=== PATIENT | female | born 1940 | race Hispanic/Latino ===

== ENCOUNTER 2017-09-13 21:33 | Emergency (ER) | payer MEDICARE ==
[~2017-09-13] VITALS: Ht 152.4 cm; Wt 49.0 kg
[~2017-09-13 21:33] MED LIST: HYDROCHLOROTHIA25 MG PO; LOSARTAN POTAS100 MG PO; METOPROLOL SUCC50 MG PO; SERTRALINE HCL50 MG PO
[2017-09-13] MEDS ORDERED: CLONIDINE HCL 0.1 MG TAB PO ONE (22:00)
[2017-09-13 22:28] LABS: BASOPHILS % 0.5 % (0.0-1.0); EOSINOPHILS # (AUTO) 0.1 (0.0-0.4); HEMATOCRIT 35.1 % (34.2-44.1); HEMOGLOBIN 11.9 g/dL (12.0-16.0); LYMPHOCYTES # (AUTO) 2.1 (1.0-3.2); LYMPHOCYTES % 33.8 % (18.0-39.1); MEAN CORPUSCULAR HGB CONC 33.9 g/dL (31-35); MEAN CORPUSCULAR VOLUME 94.4 fL (81-99); MONOCYTES # (AUTO) 0.5 (0.2-0.8); MONOCYTES % 7.8 % (4.4-11.3); NEUTROPHILS # (AUTO) 3.5 (2.1-6.9); NEUTROPHILS % 55.8 % (38.7-80.0); PLATELET COUNT 214 x10e3/uL (140-360); RED BLOOD COUNT 3.72 x10e6/uL (3.6-5.1); RED CELL DISTRIBUTION WIDTH 13.5 % (11.7-14.4)
--- NOTE | 2017-09-13 22:32 | Diagnostic Imaging Report ---
EXAMINATION: CHEST SINGLE (PORTABLE) INDICATION: Chest discomfort. Pain. COMPARISON: 01/10/2017 FINDINGS: TUBES and LINES: None. LUNGS: Lungs are well inflated. Lungs are clear. There is no evidence of pneumonia or pulmonary edema. PLEURA: No pleural effusion or pneumothorax. HEART AND MEDIASTINUM: Cardiac size is mildly enlarged. BONES AND SOFT TISSUES: No acute osseous lesion. Soft tissues are unremarkable. UPPER ABDOMEN: No free air under the diaphragm. IMPRESSION: No acute thoracic abnormality. Mild enlargement of the cardiac silhouette without decompensation. Signed by: Dr. Ino Rodriguez M.D. on 09/13/2017 10:28 PM
[2017-09-13 22:44] LABS: ALANINE AMINOTRANSFERASE 15 IU/L (0-55); ALBUMIN 4.2 g/dL (3.5-5.0); ALBUMIN/GLOBULIN RATIO 1.2 (0.8-2.0); ALKALINE PHOSPHATASE 78 IU/L (40-150); ANION GAP 16.7 mmol/L (8-16); BLOOD UREA NITROGEN 15 mg/dL (7-26); BUN/CREATININE RATIO 18 (6-25); CALCIUM 8.9 mg/dL (8.4-10.2); CARBON DIOXIDE 21 mmol/L (22-29); CHLORIDE 107 mmol/L (98-107); CREATINE KINASE 139 IU/L (29-168); CREATININE, SERUM 0.83 mg/dL (0.57-1.11); EST GLOMERULAR FILTRATION RATE > 60 ML/MIN (60-); GLUCOSE 114 mg/dL (74-118); POTASSIUM 3.7 mmol/L (3.5-5.1); SODIUM 141 mmol/L (136-145)
== END 2017-09-13 23:48 | disposition home or self-care (01) ==
LOC: ER 21:33
DX: I10 Essential (primary) hypertension (principal); R51 Headache; R07.89 Other chest pain; E78.5 Hyperlipidemia, unspecified
CPT/HCPCS: 36415; 71045; 80053; 82550; 82553; 84484; 85025; 93005; 99283

== ENCOUNTER 2018-04-25 03:56 | Emergency (ER) | payer MEDICARE ==
[~2018-04-25] VITALS: Ht 152.4 cm; Wt 48.5 kg
[2018-04-25] MEDS ORDERED: CRESTOR40 MG PO (04:13)
[2018-04-25] MEDS ORDERED: CLONIDINE1 EACH TD (04:13)
[2018-04-25] MEDS ORDERED: METOPROLOL TAR100 MG PO (04:13)
[2018-04-25] MEDS ORDERED: AMLODIPINE BESYL5 MG PO (04:13)
--- OUTSIDE RECORDS SUMMARY | 2018-05-04 11:24 | XMS REPORT ---
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 Allergies, Adverse Reactions, Alerts This patient has no known allergies or adverse reactions. Medications This patient has no known medications. Results Test Description Test Time Test Comments Text Results Atomic Results Result Comments CHEST SINGLE (PORTABLE) [place] [address] Patient Name: AUGIE BARRETT MR #: [id number] : 1940 Age/Sex: 77/F Req #: [id number] Adm Physician: Ordered by: ANTHONY KERR MD Report #: [id number] Location: ER Room/Bed: Procedure: [id number] DX/CHEST SINGLE (PORTABLE) Exam Date: 09/13/17 Exam Time: 6 REPORT STATUS: Signed EXAMINATION: CHEST SINGLE (PORTABLE) INDICATION: Chest discomfort. Pain. COMPARISON: 01/10/2017 FINDINGS: TUBES and LINES: None. LUNGS: Lungs are well inflated. Lungs are clear. There is no evidence of pneumonia or pulmonary edema. PLEURA: No pleural effusion or pneumothorax. HEART AND MEDIASTINUM: Cardiac size is mildly enlarged. BONES AND SOFT TISSUES: No acute osseous lesion. Soft tissues are unremarkable. UPPER ABDOMEN: No free air under the diaphragm. IMPRESSION: No acute thoracic abnormality. Mild enlargement of the cardiac silhouette without decompensation. Signed by: Dr. Ino Rodriguez M.D. on 09/13/2017 10:28 PM Dictated By: INO GUTIERREZ MD 27 Transcribed By: NAT on 09/13/172227 COPY TO: ANTHONY KERR MD
== END 2018-04-25 04:20 | disposition left against medical advice (07) ==
LOC: ER 03:56
DX: R11.0 Nausea (principal)

== ENCOUNTER 2020-01-27 11:06 | Emergency (ER) | payer MEDICARE ==
[~2020-01-27] VITALS: Ht 152.4 cm; Wt 48.5 kg
[~2020-01-27 11:06] MED LIST changes: +AMLODIPINE BESYL5 MG PO; +CLONIDINE1 EACH TD; +CRESTOR40 MG PO; +METOPROLOL TAR100 MG PO
--- NOTE | 2020-01-27 12:16 | Emergency Department Note ---
History of Present Illnes History of Present Illness Chief Complaint: Hypertension History of Present Illness This is a 80 year old female arrived to the ED for high blood pressure, patient states she knows her blood pressure is high because she feels pressure on her head. Patient denies any chest pain or shortness of breath. Patient states she called her PCP who said he would do a workup for her but she states she just could not wait any longer and came to the emergency department. Patient is on 12.5 mg HCTZ, 5 milligrams of amlodipine, and 50 mg of metoprolol twice a day. Chief Complaint Comment c/o elevated bp not missing any doses taking metoprolol, amlodipine, and hctz called her pcp who said he would do some lab work himself but she didn't think she could wait seen by dr haque Historian: Patient Arrival Mode: Car Foam Caster Required: No Onset (how long ago): day(s) Radiation: Reports non-radiation Severity: mild Onset quality: gradual Duration (how long): day(s) Timing of current episode: intermittent Progression: unchanged Chronicity: recurrent Past Medical/Family History Physician Review I have reviewed the patient's past medical and family history. Any updates have been documented here. Past Medical History Recent Fever: No Clinical Suspicion of Infectio: No New/Unexplained Change in Ment: No Past Medical History: Hypertension Other Medical History: HIGH CHOLESTEROL OSTEOPEROSIS Other Surgery: EYE SURGERY Social History Smoking Cessation: Never Smoker Alcohol Use: Social Physically hurt or threatened: No Other Last Tetanus: OOD Review of Systems Review of Systems Constitutional: Reports no symptoms EENTM: Reports no symptoms Cardiovascular: Reports no symptoms Respiratory: Reports no symptoms Gastrointestinal: Reports no symptoms Genitourinary: Reports no symptoms Musculoskeletal: Reports no symptoms Integumentary: Reports no symptoms Neurological: Reports no symptoms Psychological: Reports no symptoms Endocrine: Reports no symptoms Hematological/Lymphatic: Reports no symptoms Physical Exam Related Data Allergies: Coded Allergies: No Known Allergies (Unverified , 01/10/17) Triage Vital Signs Vital Signs Date Time Temp Pulse Resp B/P (MAP) Pulse Ox O2 Delivery O2 Flow Rate FiO2 01/27/20 11:28 97.8 60 18 182/77 99 Room Air Vital signs reviewed: Yes Physical Exam CONSTITUTIONAL Constitutional: Present well-developed, Present well-nourished HENT HENT: Present normocephalic, Present atraumatic, Present oropharynx clear/moist, Present nose normal HENT L/R: Present left ext ear normal, Present right ext ear normal EYES Eyes: Reports PERRL, Reports conjunctivae normal NECK Neck: Present ROM normal PULMONARY Pulmonary: Present effort normal, Present breath sounds normal CARDIOVASCULAR Cardiovascular: Present regular rhythm, Present heart sounds normal, Present capillary refill normal, Present normal rate GASTROINTESTINAL Abdominal: Present soft, Present nontender, Present bowel sounds normal GENITOURINARY Genitourinary: Present exam deferred SKIN Skin: Present warm, Present dry MUSCULOSKELETAL Musculoskeletal: Present ROM normal NEUROLOGICAL Neurological: Present alert, Present oriented x 3, Present no gross motor or sensory deficits PSYCHOLOGICAL Psychological: Present mood/affect normal, Present judgement normal Assessment & Plan Medical Decision Making MDM 80-year-old well-appearing female arrived to the ED with complaints of high blood pressure. Patient denied any headache with states she occasionally has pressure which triggers her blood pressure is high. Patient states she is concerned because her blood pressure has been high for quite a while and she needs her blood pressure medication adjusted. 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 Patient instructed to take 2 tablets of her hydrochlorothiazide 12.5 mg Assessment & Plan Final Impression: (1) Hypertension Depart Disposition: HOME, SELF-CARE Last Vital Signs Date Time Temp Pulse Resp B/P (MAP) Pulse Ox O2 Delivery O2 Flow Rate FiO2 01/27/20 11:28 97.8 60 18 182/77 99 Room Air Home Meds Reported Medications Amlodipine Besylate (AMLODIPINE BESYLATE) 5 Mg Tablet, 5 MG PO BID, #180 04/25/18 Metoprolol Tartrate (METOPROLOL TARTRATE) 100 Mg Tablet, 100 MG PO BID, #180 04/25/18 Rosuvastatin Calcium (CRESTOR) 40 Mg Tablet, 40 MG PO DAILY, #90 04/25/18 Clonidine (CLONIDINE) 1 Each Patch.tdwk, 1 PATCH TD WEEKLY, #8 04/25/18 Sertraline Hcl (SERTRALINE HCL) 50 Mg Tablet, 50 MG PO DAILY, #30 TAB 10/02/15 GERDA HAQUE, Jan 27, 2020 12:16
== END 2020-01-27 11:46 | disposition home or self-care (01) ==
LOC: ER 11:44
DX: I10 Essential (primary) hypertension (principal); E78.00 Pure hypercholesterolemia, unspecified
CPT/HCPCS: 99282

== ENCOUNTER 2021-05-25 18:51 | Emergency (ER) | payer MEDICARE ==
[~2021-05-25] VITALS: Ht 152.4 cm; Wt 48.5 kg
[2021-05-25] MEDS ORDERED: SODIUM CHLORIDE 0.9% 1000ML 1,000 ML IV STA (18:58)
[2021-05-25 19:29] LABS: BASOPHILS # (AUTO) 0.1 (0.0-0.1); BASOPHILS % 0.8 % (0.0-1.0); EOSINOPHILS # (AUTO) 0.1 (0.0-0.4); EOSINOPHILS % 1.4 % (0.0-6.0); HEMATOCRIT 37.4 % (34.2-44.1); HEMOGLOBIN 12.3 g/dL (12.0-16.0); LYMPHOCYTES # (AUTO) 2.1 (1.0-3.2); LYMPHOCYTES % 33.3 % (18.0-39.1); MEAN CORPUSCULAR HEMOGLOBIN 31.7 pg (28-32); MEAN CORPUSCULAR HGB CONC 32.9 g/dL (31-35); MEAN CORPUSCULAR VOLUME 96.4 fL (81-99); MONOCYTES # (AUTO) 0.5 (0.2-0.8); MONOCYTES % 8.4 % (4.4-11.3); NEUTROPHILS # (AUTO) 3.4 (2.1-6.9); NEUTROPHILS % 54.7 % (38.7-80.0); PLATELET COUNT 237 x10e3/uL (140-360); RED BLOOD COUNT 3.88 x10e6/uL (3.6-5.1); RED CELL DISTRIBUTION WIDTH 13.2 % (11.7-14.4)
[2021-05-25 19:30] LABS: CLARITY,URINE HAZY (CLEAR); COLOR,URINE YELLOW (YELLOW); LEUKOCYTE ESTERASE ,URINE TRACE (NEGATIVE)
[2021-05-25 19:31] LABS: KETONES,URINE NEGATIVE (NEGATIVE); NITRITE,URINE NEGATIVE (NEGATIVE); PROTEIN,URINE DIPSTICK NEGATIVE (NEGATIVE); URINE UROBILINOGEN 0.2 mg/dL (0.2 - 1)
[2021-05-25 19:39] LABS: BACTERIA,URINE FEW /HPF; EPITHELIAL CELLS,URINE FEW /LPF; RBC,URINE 0-5 /HPF (0-5)
[2021-05-25 19:43] LABS: ALBUMIN 3.9 g/dL (3.5-5.0); ALBUMIN/GLOBULIN RATIO 1.1 (0.8-2.0); ANION GAP 14.5 mmol/L (8-16); CALCIUM 9.2 mg/dL (8.4-10.2); CREATININE, SERUM 1.15 mg/dL (0.57-1.11); POTASSIUM 4.5 mmol/L (3.5-5.1)
[2021-05-25 19:50] LABS: CREATINE KINASE MB 2.9 ng/mL (0-5.0)
[2021-05-25] MEDS ORDERED: HYDRALAZINE HCL 20 MG/ML VIAL IV STA (20:05)
[2021-05-25] MEDS ORDERED: ACETAMINOPHEN 325 MG TAB PO STA (21:38)
[2021-05-25] MEDS ORDERED: ACETAMINOPHEN 325 MG TAB ONE (21:50)
[2021-05-25 22:56] VITALS: BP 163/72
== END 2021-05-25 22:50 | disposition home or self-care (01) ==
LOC: ER 18:55
DX: I10 Essential (primary) hypertension (principal); R51.9 Headache, unspecified
CPT/HCPCS: 36415; 70450; 71045; 80053; 81001; 82550; 82553; 83880; 84484; 85025; 93005; 99284; J0360; J7030

== ENCOUNTER 2021-05-27 22:45 | Emergency (ER) | payer MEDICARE ==
[~2021-05-27] VITALS: Ht 152.4 cm; Wt 48.5 kg
[2021-05-27] MEDS ORDERED: SODIUM CHLORIDE 0.9% 1000ML 1,000 ML IV STA (22:53)
[2021-05-27] MEDS ORDERED: HYDRALAZINE HCL 20 MG/ML VIAL IV STA (23:02)
[2021-05-27] MEDS ORDERED: HYDRALAZINE HCL 20 MG/ML VIAL ONE (23:13)
[2021-05-28 00:22] VITALS: BP 163/93
== END 2021-05-28 00:27 | disposition home or self-care (01) ==
LOC: ER 22:56
DX: I10 Essential (primary) hypertension (principal); E78.00 Pure hypercholesterolemia, unspecified
CPT/HCPCS: 93005; 99283; J0360; J7030

== ENCOUNTER 2024-02-18 20:51 | Inpatient (IN) | payer MEDICARE ==
[~2024-02-18] VITALS: Ht 154.9 cm; Wt 46.0 kg
[2024-02-18 21:02] VITALS: TEMP 98
[2024-02-18] MEDS ORDERED: ONDANSETRON HCL INJ 2MG/ML 2ML 2 MG/ML VIAL ONE (21:13)
[2024-02-18] MEDS ORDERED: SODIUM CHLORIDE 0.9% 1000ML 1,000 ML ONE (21:13)
[2024-02-18] MEDS: ONDANSETRON HCL INJ 2MG/ML 2ML 2 MG/ML VIAL IV STA (21:19)
[2024-02-18] MEDS: SODIUM CHLORIDE 0.9% 1000ML 1,000 ML IV STA (21:19)
[2024-02-18 21:40] LABS: ALANINE AMINOTRANSFERASE 15 IU/L (0-55); ALBUMIN 4.1 g/dL (3.5-5.0); ALBUMIN/GLOBULIN RATIO 1.3 (0.8-2.0); ALKALINE PHOSPHATASE 73 IU/L (40-150); ANION GAP 16.9 mmol/L (8-16); BILIRUBIN,TOTAL 0.3 mg/dL (0.2-1.2); BLOOD UREA NITROGEN 26 mg/dL (7-26); BUN/CREATININE RATIO 19 (6-25); CALCIUM 9.5 mg/dL (8.4-10.2); CARBON DIOXIDE 23 mmol/L (22-29); CHLORIDE 108 mmol/L (98-107); CREATINE KINASE 79 IU/L (29-168); CREATININE, SERUM 1.36 mg/dL (0.57-1.11); EST GLOMERULAR FILTRATION RATE 38 ML/MIN (>=60); GLUCOSE 213 mg/dL (74-118); POTASSIUM 3.9 mmol/L (3.5-5.1); SODIUM 144 mmol/L (136-145); TOTAL PROTEIN 7.2 g/dL (6.5-8.1)
[2024-02-18 21:49] LABS: BASOPHILS # (AUTO) 0.1 (0.0-0.1); BASOPHILS % 0.3 % (0.0-1.0); EOSINOPHILS # (AUTO) 0.1 (0.0-0.4); EOSINOPHILS % 0.3 % (0.0-6.0); HEMATOCRIT 37.5 % (34.2-44.1); HEMOGLOBIN 12.4 g/dL (12.0-16.0); LYMPHOCYTES # (AUTO) 3.3 (1.0-3.2); LYMPHOCYTES % 17.2 % (18.0-39.1); MEAN CORPUSCULAR HEMOGLOBIN 31.9 pg (28-32); MEAN CORPUSCULAR HGB CONC 33.1 g/dL (31-35); MEAN CORPUSCULAR VOLUME 96.4 fL (81-99); MONOCYTES # (AUTO) 1.1 (0.2-0.8); MONOCYTES % 5.9 % (4.4-11.3); NEUTROPHILS # (AUTO) 14.3 (2.1-6.9); NEUTROPHILS % 75.1 % (38.7-80.0); PLATELET COUNT 280 x10e3/uL (140-360); RED BLOOD COUNT 3.89 x10e6/uL (3.6-5.1); RED CELL DISTRIBUTION WIDTH 13.3 % (11.7-14.4); WHITE BLOOD COUNT 19.02 x10e3/uL (4.8-10.8)
[2024-02-18 21:55] LABS: TROPONIN I < 0.05 ng/mL (0.0-0.40)
[2024-02-18 22:30] LABS: CLARITY,URINE CLEAR (CLEAR); COLOR,URINE YELLOW (YELLOW); GLUCOSE, URINE NEGATIVE (NEGATIVE); KETONES,URINE NEGATIVE (NEGATIVE); LEUKOCYTE ESTERASE ,URINE TRACE (NEGATIVE); NITRITE,URINE NEGATIVE (NEGATIVE); PH,URINE 5.5 (5 - 7); PROTEIN,URINE DIPSTICK 1+ (NEGATIVE)
[2024-02-18 22:31] LABS: BILIRUBIN,URINE NEGATIVE (NEGATIVE); URINE UROBILINOGEN 0.2 mg/dL (0.2 - 1)
[2024-02-18 23:24] LABS: BACTERIA,URINE MODERATE /HPF; EPITHELIAL CELLS,URINE FEW /LPF; RBC,URINE 0-5 /HPF (0-5)
[2024-02-19] VITALS (11 sets, daily range): BP systolic 148–164; BP diastolic 66–76; PULSE 64–79; RESP 16–20; TEMP 98.5–98.9; O2SAT 95–100
[2024-02-19 00:11] LABS: CHOL/HDL RATIO 5.3 (3.0-3.6)
[2024-02-19] MEDS: Morphine 2mg Syringe 2 MG/ML SYR IV ONE (00:40)
[2024-02-19] MEDS: SODIUM CHLORIDE 0.9% 1000ML 1,000 ML IV SCH (00:45)
[2024-02-19] MEDS: ONDANSETRON HCL INJ 2MG/ML 2ML 2 MG/ML VIAL IV PRN ×2 (01:01→10:12)
[2024-02-19] MEDS ORDERED: OLMESARTAN MEDO40 MG PO (05:43)
[2024-02-19] MEDS ORDERED: DEXTROSE 50% SYRINGE 50 ML IV PRN (09:15)
[2024-02-19 09:25] LABS: BASOPHILS % 0.1 % (0.0-1.0); HEMATOCRIT 35.8 % (34.2-44.1); HEMOGLOBIN 11.9 g/dL (12.0-16.0); LYMPHOCYTES # (AUTO) 0.7 (1.0-3.2); LYMPHOCYTES % 6.4 % (18.0-39.1); MEAN CORPUSCULAR HEMOGLOBIN 31.6 pg (28-32); MEAN CORPUSCULAR HGB CONC 33.2 g/dL (31-35); MONOCYTES # (AUTO) 0.4 (0.2-0.8); MONOCYTES % 3.2 % (4.4-11.3); NEUTROPHILS # (AUTO) 10.3 (2.1-6.9); NEUTROPHILS % 89.9 % (38.7-80.0); PLATELET COUNT 222 x10e3/uL (140-360); RED BLOOD COUNT 3.77 x10e6/uL (3.6-5.1); RED CELL DISTRIBUTION WIDTH 13.2 % (11.7-14.4)
[2024-02-19 09:50] LABS: ALBUMIN 3.3 g/dL (3.5-5.0); ALBUMIN/GLOBULIN RATIO 1.2 (0.8-2.0); ANION GAP 14.1 mmol/L (8-16); BILIRUBIN,TOTAL 0.7 mg/dL (0.2-1.2); CALCIUM 7.8 mg/dL (8.4-10.2); CREATININE, SERUM 1.05 mg/dL (0.57-1.11); POTASSIUM 4.1 mmol/L (3.5-5.1)
[2024-02-19] MEDS: Morphine 4mg INJECTION 4 MG/ML INJ IV PRN (10:12)
[2024-02-19] MEDS: INSULIN LISPRO 100 UNIT/1 ML 3ML VIAL SQ SCH (11:30)
[2024-02-19] MEDS: ACETAMINOPHEN 1000 MG/100 ML IV PRN (17:40)
[2024-02-20] VITALS (10 sets, daily range): BP systolic 104–176; BP diastolic 71–93; PULSE 75–87; RESP 16–20; TEMP 98–100.2; O2SAT 95–100
[2024-02-20] MEDS: HYDRALAZINE HCL 20 MG/ML VIAL IV PRN (00:22)
[2024-02-20 05:51] LABS: BASOPHILS % 0.1 % (0.0-1.0); HEMATOCRIT 33.5 % (34.2-44.1); HEMOGLOBIN 11.2 g/dL (12.0-16.0); LYMPHOCYTES # (AUTO) 0.9 (1.0-3.2); LYMPHOCYTES % 5.8 % (18.0-39.1); MEAN CORPUSCULAR HEMOGLOBIN 32.2 pg (28-32); MEAN CORPUSCULAR HGB CONC 33.4 g/dL (31-35); MEAN CORPUSCULAR VOLUME 96.3 fL (81-99); MONOCYTES # (AUTO) 0.6 (0.2-0.8); MONOCYTES % 3.6 % (4.4-11.3); NEUTROPHILS # (AUTO) 13.8 (2.1-6.9); NEUTROPHILS % 89.8 % (38.7-80.0); PLATELET COUNT 198 x10e3/uL (140-360); RED BLOOD COUNT 3.48 x10e6/uL (3.6-5.1); RED CELL DISTRIBUTION WIDTH 13.5 % (11.7-14.4); WHITE BLOOD COUNT 15.29 x10e3/uL (4.8-10.8)
[2024-02-20 06:22] LABS: MAGNESIUM 1.8 MG/DL (1.3-2.1); PHOSPHORUS 1.8 MG/DL (2.3-4.7)
[2024-02-20 06:25] LABS: ALBUMIN 2.9 g/dL (3.5-5.0); ALBUMIN/GLOBULIN RATIO 1.1 (0.8-2.0); ANION GAP 8.7 mmol/L (8-16); BILIRUBIN,TOTAL 0.8 mg/dL (0.2-1.2); CALCIUM 7.4 mg/dL (8.4-10.2); CREATININE, SERUM 0.87 mg/dL (0.57-1.11); POTASSIUM 3.7 mmol/L (3.5-5.1); TOTAL PROTEIN 5.5 g/dL (6.5-8.1)
[2024-02-20] MEDS ORDERED: CARVEDILOL3.125 MG PO (23:13)
[2024-02-20] MEDS ORDERED: ATORVASTATIN CA10 MG PO (23:13)
[2024-02-21] VITALS (11 sets, daily range): BP systolic 125–153; BP diastolic 68–97; PULSE 74–99; RESP 16–20; TEMP 97.7–100.2; O2SAT 95–100
[2024-02-21] MEDS: ALBUTEROL/IPRATROPIUM 3 ML NEB NEB PRN ×2 (06:34→22:24)
[2024-02-21 06:45] LABS: BASOPHILS % 0.1 % (0.0-1.0); EOSINOPHILS % 0.1 % (0.0-6.0); HEMATOCRIT 30.3 % (34.2-44.1); LYMPHOCYTES % 6.4 % (18.0-39.1); MEAN CORPUSCULAR HEMOGLOBIN 31.9 pg (28-32); MEAN CORPUSCULAR VOLUME 96.8 fL (81-99); MONOCYTES # (AUTO) 0.7 (0.2-0.8); MONOCYTES % 4.3 % (4.4-11.3); NEUTROPHILS # (AUTO) 13.7 (2.1-6.9); NEUTROPHILS % 88.3 % (38.7-80.0); PLATELET COUNT 162 x10e3/uL (140-360); RED BLOOD COUNT 3.13 x10e6/uL (3.6-5.1); WHITE BLOOD COUNT 15.48 x10e3/uL (4.8-10.8)
[2024-02-21 07:01] LABS: ALBUMIN 2.6 g/dL (3.5-5.0); ALBUMIN/GLOBULIN RATIO 0.9 (0.8-2.0); ANION GAP 10.3 mmol/L (8-16); BILIRUBIN,TOTAL 0.8 mg/dL (0.2-1.2); CREATININE, SERUM 0.75 mg/dL (0.57-1.11); TOTAL PROTEIN 5.4 g/dL (6.5-8.1)
[2024-02-21 07:11] LABS: POTASSIUM 3.3 mmol/L (3.5-5.1)
[2024-02-21] MEDS: SERTRALINE HCL 50 MG TAB PO SCH (08:17)
[2024-02-21] MEDS: OLMESARTAN 20 MG TAB PO SCH (08:17)
[2024-02-21] MEDS: CARVEDILOL 3.125 MG TAB PO SCH (08:18)
[2024-02-21] MEDS ORDERED: DIPHENHYDRAMINE HCL 25 MG CAP PO PRN (10:30)
[2024-02-21] MEDS ORDERED: LIDOCAINE 4% PATCH TP PRN (10:30)
[2024-02-21] MEDS ORDERED: DOCUSATE SODIUM 100 MG CAP PO PRN (10:30)
[2024-02-21] MEDS ORDERED: BENZONATATE 100 MG CAP PO PRN (10:30)
[2024-02-21] MEDS ORDERED: ACETAMINOPHEN 325 MG TAB PO PRN (10:30)
[2024-02-21] MEDS ORDERED: HYDRALAZINE HCL 20 MG/ML VIAL IV PRN (10:30)
[2024-02-21] MEDS ORDERED: DEXTROSE 50% SYRINGE 50 ML IV PRN (10:30)
[2024-02-21] MEDS: ENOXAPARIN SOD INJ 40 MG/0.4 ML SYR SC SCH (17:48)
[2024-02-21] MEDS: ATORVASTATIN 10 MG TAB PO SCH (21:00)
[2024-02-21] MEDS: CYCLOBENZAPRINE HCL 10 MG TAB PO PRN (21:57)
[2024-02-22] VITALS (10 sets, daily range): BP systolic 118–154; BP diastolic 68–78; PULSE 77–87; RESP 16–20; TEMP 97.5–98.9; O2SAT 94–100
[2024-02-22 05:58] LABS: BASOPHILS % 0.1 % (0.0-1.0); EOSINOPHILS % 0.2 % (0.0-6.0); HEMATOCRIT 27.3 % (34.2-44.1); HEMOGLOBIN 9.2 g/dL (12.0-16.0); LYMPHOCYTES # (AUTO) 0.8 (1.0-3.2); LYMPHOCYTES % 6.1 % (18.0-39.1); MEAN CORPUSCULAR HEMOGLOBIN 32.3 pg (28-32); MEAN CORPUSCULAR HGB CONC 33.7 g/dL (31-35); MEAN CORPUSCULAR VOLUME 95.8 fL (81-99); MONOCYTES # (AUTO) 0.6 (0.2-0.8); NEUTROPHILS # (AUTO) 10.8 (2.1-6.9); NEUTROPHILS % 87.8 % (38.7-80.0); PLATELET COUNT 159 x10e3/uL (140-360); RED BLOOD COUNT 2.85 x10e6/uL (3.6-5.1); RED CELL DISTRIBUTION WIDTH 13.6 % (11.7-14.4); WHITE BLOOD COUNT 12.31 x10e3/uL (4.8-10.8)
[2024-02-22 06:35] LABS: ALBUMIN 2.4 g/dL (3.5-5.0); ALBUMIN/GLOBULIN RATIO 0.8 (0.8-2.0); ANION GAP 11.2 mmol/L (8-16); BILIRUBIN,TOTAL 0.7 mg/dL (0.2-1.2); CALCIUM 7.6 mg/dL (8.4-10.2); CREATININE, SERUM 0.69 mg/dL (0.57-1.11); TOTAL PROTEIN 5.3 g/dL (6.5-8.1)
[2024-02-22 06:41] LABS: POTASSIUM 3.2 mmol/L (3.5-5.1)
[2024-02-22] MEDS: PANTOPRAZOLE SOD 40 MG TABEC PO SCH (09:13)
[2024-02-22] MEDS: POTASSIUM CHLORIDE 10MEQ EA PO ONE (09:13)
[2024-02-22] MEDS: FUROSEMIDE INJ 10 MG/ML 4 ML VIAL IV ONE (09:13)
[2024-02-22] MEDS: METOCLOPRAMIDE HCL 10 MG/2ML VIAL IV SCH (09:13)
[2024-02-22] MEDS: MELATONIN 5 MG TABLET PO PRN (21:18)
[2024-02-23] VITALS (7 sets, daily range): BP systolic 133–141; BP diastolic 70–88; PULSE 80–93; RESP 17–19; TEMP 98.2–99; O2SAT 94–99
[2024-02-23 06:26] LABS: MAGNESIUM 1.7 MG/DL (1.3-2.1); PHOSPHORUS 2.2 MG/DL (2.3-4.7)
[2024-02-23 06:56] LABS: ANION GAP 13.1 mmol/L (8-16); CREATININE, SERUM 0.79 mg/dL (0.57-1.11)
[2024-02-23 06:57] LABS: POTASSIUM 3.1 mmol/L (3.5-5.1)
[2024-02-23] MEDS: POTASSIUM CHLORIDE 20 MEQ TAB CR PO PRN (08:33)
[2024-02-23] MEDS ORDERED: SENOKOT8.6 MG PO (15:37)
[2024-02-23] MEDS ORDERED: ONDANSETRON ODT4 MG PO (15:37)
[2024-02-23] MEDS ORDERED: PANTOPRAZOLE SO40 MG PO (15:37)
== END 2024-02-23 16:12 | disposition home health service (06) | DRG 438 ==
LOC: ER 20:59 → ERHOLD 02-19 00:18 → MED/SURG2 02-19 01:20
PROVIDERS: ADMIT Internal Medicine; ATTEND Internal Medicine
DX: K85.90 Acute pancreatitis without necrosis or infection, unspecified (principal); E43 Unspecified severe protein-calorie malnutrition; E87.20 Acidosis, unspecified; J90 Pleural effusion, not elsewhere classified; N17.9 Acute kidney failure, unspecified; Z68.1 Body mass index [BMI] 19.9 or less, adult; Z71.3 Dietary counseling and surveillance; E86.0 Dehydration; R11.2 Nausea with vomiting, unspecified; I10 Essential (primary) hypertension; R73.9 Hyperglycemia, unspecified; F43.9 Reaction to severe stress, unspecified; F41.9 Anxiety disorder, unspecified; N83.8 Other noninflammatory disorders of ovary, fallopian tube and broad ligament; N20.0 Calculus of kidney; F32.A Depression, unspecified; I08.0 Rheumatic disorders of both mitral and aortic valves; K44.9 Diaphragmatic hernia without obstruction or gangrene; Z11.52 Encounter for screening for COVID-19; Z86.16 Personal history of COVID-19; Z79.899 Other long term (current) drug therapy
CPT/HCPCS: 36415; 71045; 74176; 74181; 76705; 80048; 80053; 80061; 81001; 82550; 82948; 83036; 83690; 83735; 84100; 84443; 84484; 85025; 86301; 87040; 93005; 93306; 94640; 94799; 99284; J0360; J1650; J1940; J2270; J2405; J2470; J2543; J2765; J7030; U0002